=== PATIENT | female | born 1960 | race Caucasian/White ===

== ENCOUNTER 2021-01-25 14:13 | Emergency (ER) | payer SELFPAY ==
[~2021-01-25] VITALS: Ht 165.1 cm; Wt 74.5 kg
[2021-01-25] MEDS ORDERED: IV NORMAL SALINE 1,000ML 1,000 ML IV ONE (14:45)
[2021-01-25] MEDS ORDERED: ONDANSETRON PF 4 MG/2 ML VIAL. IVP ONE (14:45)
--- NOTE | 2021-01-25 14:49 | PHYS DOC ---
Past History Past Medical History: Kidney Stones, UTI (CANDY MOCK DO) Past Surgical History: Cholecystectomy, Tonsillectomy Additional Past Surgical Histo: ovarian cyst (CANDY MCOK DO) Smoking: Non-smoker Alcohol Use: None Drug Use: None (CANDY MOCK DO) General Adult EDM: Chief Complaint: ABDOMINAL PAIN HPI: HPI: Patient is a 61-year-old female who presents to the ER for bilateral lower abdominal pain, diarrhea, and nausea for 2 days. Patient rates her pain 8 out of 10. It does not radiate. No treatment prior to arrival. Patient reports that she has had these symptoms before and was diagnosed with gastritis. P atient denies vomiting, blood in stools or vomit, fevers, chest pain, shortness of breath. (KEITH COATS APRN) Review of Systems: Review of Systems: 14 body systems of the review of systems have been reviewed. See HPI for pertinent positive and negative responses, otherwise all other systems are negative, nonpertinent or noncontributory (KEITH COATS APRN) Allergies: Allergies: Allergies Coded Allergies Type Severity Reaction Last Updated Verified Penicillins Allergy Unknown Hives 01/25/21 Yes Sulfa (Sulfonamide Antibiotics) Allergy Unknown Hives 01/25/21 Yes tetracycline Allergy Unknown Hives 01/25/21 Yes (KEITH COATS APRN) Physical Exam: PE: Constitutional: Well developed, well nourished, no acute distress, non-toxic appearance. [] HENT: Normocephalic, atraumatic, bilateral external ears normal, oropharynx moist, no oral exudates, nose normal. [] Eyes: PERRL, EOMI, conjunctiva normal, no discharge. [] Neck: Normal range of motion, no stridor Cardiovascular:Heart rate tachycardic rhythm, no murmur [] Lungs & Thorax: Bilateral breath sounds clear to auscultation [] Abdomen: Bowel sounds normal, soft, bilateral lower abdominal tenderness with palpation, negative rebound tenderness, no masses, no pulsatile masses. [] Skin: Warm, dry, no erythema, no rash. [] Back: No tenderness, normal range of motion Extremities: No tenderness, no cyanosis, no clubbing, ROM intact, no edema. [] Neurologic: Alert and oriented X 3, normal motor function, normal sensory function, no focal deficits noted. [] Psychologic: Affect normal, judgement normal, mood normal. [] (KEITH COATS HUM[employer] DISTRICT MANAGER) Current Patient Data: Labs: Laboratory Tests Test 01/25/21 15:15 White Blood Count 16.9 x10^3/uL Red Blood Count 4.48 x10^6/uL Hemoglobin 14.5 g/dL Hematocrit 43.2 % Mean Corpuscular Volume 96 fL Mean Corpuscular Hemoglobin 32 pg Mean Corpuscular Hemoglobin Concent 34 g/dL Red Cell Distribution Width 12.9 % Platelet Count 245 x10^3/uL Neutrophils (%) (Auto) 89 % Lymphocytes (%) (Auto) 7 % Monocytes (%) (Auto) 4 % Eosinophils (%) (Auto) 0 % Basophils (%) (Auto) 0 % Neutrophils # (Auto) 15.0 x10^3uL Lymphocytes # (Auto) 1.2 x10^3/uL Monocytes # (Auto) 0.6 x10^3/uL Eosinophils # (Auto) 0.1 x10^3/uL Basophils # (Auto) 0.1 x10^3/uL Platelet Estimate Pending Urine Collection Type Void Urine Color Yellow Urine Clarity Clear Urine pH 6.0 Urine Specific [place] 1.025 Urine Protein Neg Urine Glucose (UA) Neg mg/dL Urine Ketones (Stick) Neg mg/dL Urine Blood Trace Urine Nitrite Neg Urine Bilirubin Neg Urine Urobilinogen Dipstick 0.2 mg/dL Urine Leukocyte Esterase Neg Urine RBC 0 /HPF Urine WBC 1-4 /HPF Urine Squamous Epithelial Cells Few /LPF Urine Bacteria 0 /HPF Sodium Level 142 mmol/L Potassium Level 3.7 mmol/L Chloride Level 103 mmol/L Carbon Dioxide Level 32 mmol/L Anion Gap 7 Blood Urea Nitrogen 22 mg/dL Creatinine 0.9 mg/dL Estimated GFR (Cockcroft-Gault) 63.4 BUN/Creatinine Ratio 24 Glucose Level 101 mg/dL Calcium Level 9.1 mg/dL Total Bilirubin 1.1 mg/dL Aspartate Amino Transf (AST/SGOT) 24 U/L Alanine Aminotransferase (ALT/SGPT) 25 U/L Alkaline Phosphatase 88 U/L Total Protein 7.5 g/dL Albumin 3.8 g/dL Albumin/Globulin Ratio 1.0 Lipase 100 U/L Current Medications Medications (Trade) Dose Ordered Sig/Andrew Route PRN Reason Start Time Stop Time Status Last Admin Dose Admin Sodium Chloride 1,000 ml @ 1,000 mls/hr 1X ONCE IV 01/25/21 14:45 01/25/21 15:44 DC 01/25/21 15:42 Ondansetron HCl (Zofran) 4 mg 1X ONCE IVP 01/25/21 14:45 01/25/21 14:54 DC 01/25/21 15:42 Iohexol (Omnipaque 300 Mg/ml) 75 ml 1X ONCE IV 01/25/21 15:00 01/25/21 15:01 DC 01/25/21 15:32 Fentanyl Citrate (Fentanyl 2ml Vial) 50 mcg 1X ONCE IVP 01/25/21 16:15 01/25/21 16:16 DC 01/25/21 16:20 Ciprofloxacin Lactate 200 ml @ 200 mls/hr 1X ONCE IV 01/25/21 16:15 01/25/21 17:14 DC Metronidazole 100 ml @ 100 mls/hr 1X ONCE IV 01/25/21 16:15 01/25/21 17:14 DC 01/25/21 16:22 (KEITH COATS APRN) EKG: EKG: [] (KEITH COATS APRN) Radiology/Procedures: Radiology/Procedures: PROCEDURE: CT ABD PELV W/ IV CONTRST ONLY CT ABDOMEN+PELVIS W History: Lower abdominal pain. Comparison: None. Technique: CT of the abdomen and pelvis with intravenous contrast. Findings: The lung bases are clear. Normal cardiac silhouette. No pleural or pericardial effusion. There is a small amount of subdiaphragmatic free air along the inferior aspect of the diaphragm, spleen, liver and underside anterior peritoneum. The sigmoid colon demonstrates moderate diverticulosis with wall thickening and pericolonic edema. No well-formed pericolonic fluid collection is identified. There is wall thickening and inflammation of the adjacent small bowel loops which are secondarily inflamed. Decompressed stomach. Normal appendix. The ascending, transverse and proximal descending colon are within normal limits. Mild descending colonic diverticulosis. The liver, pancreas, spleen, and adrenal glands are unremarkable. Status post cholecystectomy. Multiple bilateral nonobstructive nephroliths. No ureterolithiasis. The bladder is decompressed. Unremarkable uterus. Aortoiliac vasculature is within normal limits. No significant abdominopelvic adenopathy. The soft tissues and osseous structures are unremarkable. Impression: 1. Sigmoid diverticulitis complicated by perforation and intraperitoneal free air. No pericolonic abscess identified. 2. Bilateral nonobstructing nephrolithiasis. Findings discussed with Keith Coats at 01/25/2021 3:48 PM. FOR INTERNAL CODING PURPOSES RESULT CODE: (C) ------ Exposure: One or more of the following individualized dose reduction techniques were utilized for this examination: 1. Automated exposure control 2. Adjustment of the mA and/or kV according to patient size 3. Use of iterative reconstruction technique. Electronically signed by: Edilberto Rodriguez MD (01/25/2021 3:49 PM) [id number] (KEITH COATS APRN) Heart Score: C/O Chest Pain: No Risk Factors: Risk Factors: DM, Current or recent (<one month) smoker, HTN, HLP, family history of CAD, obesity. Risk Scores: Score 0 - 3: 2.5% MACE over next 6 weeks - Discharge Home Score 4 - 6: 20.3% MACE over next 6 weeks - Admit for Clinical Observation Score 7 - 10: 72.7% MACE over next 6 weeks - Early Invasive Strategies (KEITH COATS APRN) Course & Med Decision Making: Course & Med Decision Making Pertinent Labs and Imaging studies reviewed. (See chart for details) [] Patient is a 61-year-old female being seen in the ER for lower abdominal pain, nausea, diarrhea that started 2 days ago. Work-up in the ER consisted of blood work, urinalysis, CT scan of abdomen. Patient was treated in the ER with nausea medication, pain medication and fluids. Patient was noted to have leukocytosis with the WBC of 16.9, CMP unremarkable, UA unremarkable. CT scan of abdomen showed sigmoid diverticulitis with perforation with free air and no abscess. Antibiotics administered in the ER. I attempted to transfer patient to [facility] but they had no inpatient beds. Following that, they attempted to transfer patient to [facility] facility but was told they had no beds. I contacted [facility] and was able to get an inpatient bed. Dr. Pastrana has accepted patient. Patient notified of care plan and results. Patient agreeable to care plan and transfer. Patient will be transferred via EMS to [facility] on the [place]. Care transferred at this time 1734. (KEITH COATS APRN) Dragon Disclaimer: Dragon Disclaimer: This electronic medical record was generated, in whole or in part, using a voice recognition dictation system. (KEITH COATS APRN) Departure Departure: Impression: Primary Impression: Perforation of sigmoid colon due to diverticulitis Disposition: 02 [facility]ORT [facility]M [facility] Condition: STABLE Referrals: PCP,NO (PCP) Attending Signature Attending Signature I have reviewed the PA/DRUM WORKER's note and plan of care. I was available for consultation as needed during the patient's visit in the emergency department. I agree with the clinical impression, plan, and disposition. (CANDY MOCK DO) KEITH COATS APRN Jan 25, 2021 14:48 CANDY MOCK DO Jan 25, 2021 20:41
[2021-01-25] MEDS ORDERED: IOHEXOL 300 MG/ML 75 ML VIAL. IV ONE (15:00)
[2021-01-25 15:33] LABS: BASO # 0.1 x10^3/uL (0.0-0.2); BASO % 0 % (0-3); EOS # 0.1 x10^3/uL (0.0-0.7); EOS % 0 % (0-3); HEMATOCRIT 43.2 % (36.0-47.0); HEMOGLOBIN 14.5 g/dL (12.0-15.5); LYMPH # 1.2 x10^3/uL (1.0-4.8); LYMPH % 7 % (24-48); MEAN CORPUSCULAR HEMOGLOBIN 32 pg (25-35); MEAN CORPUSCULAR HGB CONC 34 g/dL (31-37); MEAN CORPUSCULAR VOLUME 96 fL (79-100); MONO # 0.6 x10^3/uL (0.0-1.1); MONO % 4 % (0-9); NEUT % 89 % (31-73); PLATELET COUNT 245 x10^3/uL (140-400); RED BLOOD COUNT 4.48 x10^6/uL (3.50-5.40); RED CELL DISTRIBUTION WIDTH 12.9 % (11.5-14.5); WHITE BLOOD COUNT 16.9 x10^3/uL (4.0-11.0)
[2021-01-25 15:41] LABS: CALCIUM 9.1 mg/dL (8.5-10.1); CREATININE 0.9 mg/dL (0.6-1.0); GFR 63.4; POTASSIUM 3.7 mmol/L (3.5-5.1)
[2021-01-25 15:47] LABS: ALBUMIN 3.8 g/dL (3.4-5.0); TOTAL BILIRUBIN 1.1 mg/dL (0.2-1.0); TOTAL PROTEIN 7.5 g/dL (6.4-8.2)
[2021-01-25 15:52] LABS: BACTERIA,URINE 0 /HPF (0-FEW); BILIRUBIN,URINE NEG (NEG); CLARITY,URINE CLEAR; COLOR,URINE YELLOW; GLUCOSE,URINE NEG (NEG); NITRITE,URINE NEG (NEG); RBC,URINE 0 /HPF (0-2); SQUAMOUS EPITHELIAL CELL,UR FEW /LPF; UROBILINOGEN,URINE 0.2 mg/dL (0.2 mg/dL)
--- NOTE | 2021-01-25 15:52 | RAD ---
CT ABDOMEN+PELVIS W History: Lower abdominal pain. Comparison: None. Technique: CT of the abdomen and pelvis with intravenous contrast. Findings: The lung bases are clear. Normal cardiac silhouette. No pleural or pericardial effusion. There is a small amount of subdiaphragmatic free air along the inferior aspect of the diaphragm, sple en, liver and underside anterior peritoneum. The sigmoid colon demonstrates moderate diverticulosis w ith wall thickening and pericolonic edema. No well-formed pericolonic fluid collection is identified. There is wall thickening and inflammation of the adjacent small bowel loops which are secondarily in flamed. Decompressed stomach. Normal appendix. The ascending, transverse and proximal descending colo n are within normal limits. Mild descending colonic diverticulosis. The liver, pancreas, spleen, and adrenal glands are unremarkable. Status post cholecystectomy. Multip le bilateral nonobstructive nephroliths. No ureterolithiasis. The bladder is decompressed. Unremarkab le uterus. Aortoiliac vasculature is within normal limits. No significant abdominopelvic adenopathy. The soft tissues and osseous structures are unremarkable. Impression: 1. Sigmoid diverticulitis complicated by perforation and intraperitoneal free air. No pericolonic ab scess identified. 2. Bilateral nonobstructing nephrolithiasis. Findings discussed with Christina Arce at 01/25/2021 3:48 PM. FOR INTERNAL CODING PURPOSES RESULT CODE: (C) ------ Exposure: One or more of the following individualized dose reduction techniques were utilized for thi s examination: 1. Automated exposure control 2. Adjustment of the mA and/or kV according to patient size 3. Use of iterative reconstruction technique. Electronically signed by: Edilberto Rodriguez MD (01/25/2021 3:49 PM) [id number]
[2021-01-25] MEDS ORDERED: CIPROFLOXACIN 400MG PREMIX 200 ML IV ONE (16:15)
[2021-01-25 17:13] VITALS: BP 138/57
[2021-01-25 21:05] LABS: % BANDS 1 % (0-9); % EOS 2 % (0-5); % LYMPHS 6 % (24-48); % MONOS 3 % (0-10); % SEGS 88 % (35-66); PLT ESTIMATE ADEQUATE (ADEQUATE)
== END 2021-01-25 17:45 | disposition short-term general hospital (02) ==
LOC: ER 14:13
DX: K57.20 Diverticulitis of large intestine with perforation and abscess without bleeding (principal); Z88.0 Allergy status to penicillin; Z88.2 Allergy status to sulfonamides; Z88.1 Allergy status to other antibiotic agents; Z87.440 Personal history of urinary (tract) infections; Z87.442 Personal history of urinary calculi; Z90.49 Acquired absence of other specified parts of digestive tract
CPT/HCPCS: 36415; 74177; 80053; 81001; 83690; 85007; 85025; 96361; 96365; 96375; 99285; J0744; J2405; J3010; J3490; J7030; Q9967